=== PATIENT | female | born 1985 ===

== ENCOUNTER 2017-06-24 14:36 | Emergency (ER) | payer SELFPAY ==
[2017-06-24 15:03] VITALS: BP 127/67; PULSE 67; RESP 20; TEMP 98.7; O2SAT 99
--- NOTE | 2017-06-24 15:51 | ED PDOC ---
HPI: General Adult Time Seen by Provider: 06/24/17 15:12 Chief Complaint (Nursing): Breast Problem Chief Complaint (Provider): Breast Problem History Per: First Officer History/Exam Limitations: language barrier Onset/Duration Of Symptoms: Days (x3days) Current Symptoms Are (Timing): Still Present Additional Complaint(s): Sharri Murillo presents to the ED accompanied by her for chief complaint of breast pain onset x3days prior. Patient reports checking the nipple area and noticed clear fluid coming out. Denies any fever, chills, nausea , vomiting, but states breast feels hot and has a fullness sensation, and that she is just tired. Reports last menstrual period was mid May and is unknown if she is . Of note, an software technical lead was used due to patients inability to provide a history in [place]. PMD: None Past Medical History Reviewed: Historical Data, Nursing Documentation, Vital Signs Vital Signs: Last Vital Signs Temp 98.7 F 06/24/17 15:01 Pulse 67 06/24/17 15:01 Resp 20 06/24/17 15:01 BP 127/67 06/24/17 15:01 Pulse Ox 99 06/24/17 16:09 - Medical History PMH: No Chronic Diseases - Surgical History Surgical History: No Surg Hx - Family History Family History: States: Unknown Family Hx - Living Arrangements Living Arrangements: With Family - Allergies Allergies/Adverse Reactions: Allergies Allergy/AdvReac Type Severity Reaction Status Date / Time No Known Allergies Allergy Verified 06/24/17 15:00 Review of Systems ROS Statement: Except As Marked, All Systems Reviewed And Found Negative Constitutional: Positive for: Other (Fullness sensation to the breast. Breast feels hot.). Negative for: Fever, Chills Gastrointestinal: Negative for: Nausea, Vomiting Physical Exam - Reviewed Nursing Documentation Reviewed: Yes Vital Signs Reviewed: Yes - Physical Exam Appears: Positive for: Well, Non-toxic, No Acute Distress Head Exam: Positive for: ATRAUMATIC, NORMAL INSPECTION, NORMOCEPHALIC Skin: Positive for: Normal Color Eye Exam: Positive for: Normal appearance ENT: Positive for: Normal ENT Inspection Neck: Positive for: Normal Cardiovascular/Chest: Positive for: Regular Rate, Rhythm, Other (No nipple inversion. Normal Breast. No active drainage around the nipple. No erythema around the breast. No breast tenderness. No cysts, masses or swelling.) Respiratory: Positive for: Normal Breath Sounds Gastrointestinal/Abdominal: Positive for: Normal Exam Rectal: Positive for: Deferred Extremity: Positive for: Normal ROM Lymphatic: Negative for: Axilla Node Tenderness (No lymph nodes in the axillar.) , Other (No clavicular lymph node swelling.) Neurologic/Psych: Positive for: Alert, Oriented - ECG O2 Sat by Pulse Oximetry: 99 (RA) Pulse Ox Interpretation: Normal Medical Decision Making Medical Decision Makin: Fibrocystic changes to the breast or mammary duct blockage. Initial plan: * Ultrasound * test-negative. * Re-Evaluation Patient advised to follow up with OBGYN. Vitals are stable, non febrile. No emergent changes in clinical condition. Scribe Attestation: Documented by Desmond Roldan acting as a scribe for Pham Rivas PA-C. Provider Scribe Attestation: All medical record entries made by the Scribe were at my direction and personally dictated by me. I have reviewed the chart and agree that the record accurately reflects my personal performance of the history, physical exam, medical decision making, and the department course for this patient. I have also personally directed, reviewed, and agree with the discharge instructions and disposition. Time Disposition - Clinical Impression Clinical Impression: Pain of breast - Patient ED Disposition Is Patient to be Admitted: No Counseled Patient/Family Regarding: Need For Followup - Disposition Disposition: Routine/Home Disposition Time: 16:19 Condition: STABLE Instructions: Breast Self Exam for Women (ED) Forms: [employer] ([place])
== END 2017-06-24 16:26 | disposition home or self-care (01) ==
LOC: H.ER 14:36
DX: N64.4 Mastodynia (principal)